=== PATIENT | female | born 1950 | race Caucasian/White ===

== ENCOUNTER 2017-10-07 00:42 | Emergency (ER) | payer MEDICARE, BC ==
[2017-10-07] MEDS ORDERED: INSULIN REGULAR, HUMAN 100 UNITS/ML VIAL IV ONE ×2 (01:11→03:45)
[2017-10-07] MEDS ORDERED: NORMAL SALINE 1,000 ML IV ONE ×2 (01:11→02:45)
[2017-10-07 01:30] LABS: Hematocrit 44.5 % (37.0-47.0); Hemoglobin 15.4 gm/dL (12.5-16.0); Mean Cell Volume 88.6 fl (78-100); Mean Corpuscular Hemoglobin 30.7 pg (27-31); Mean Corpuscular Hgb Conc 34.6 g/dl (32-36); Mean Platelet Volume 11.5 fl (6.0-9.5); Neutrophil # 17.1 K/mm3 (1.3-6.0); Neutrophil % 84.1 % (42-75.0); Platelet Count 425 K/mm3 (150-450); Red Blood Count 5.02 M/mm3 (4.2-5.4); Red Cell Distribution Width 12.2 % (11.5-14.0); White Blood Count 20.4 K/mm3 (4.0-10.5)
[2017-10-07 02:20] LABS: ALT 41 U/L (19-67); AST 14 U/L (0-48); Albumin * 3.6 gm/dl (3.4-5.0); Alkaline Phosphatase * 117 U/L (50-170); Anion Gap 14.8 mmol/L (6.8-13.8); BUN/Creatinine Ratio 23.7 (9.0-21.6); Bilirubin, Total 0.3 mg/dL (0.0-1.1); Blood Urea Nitrogen 36 mg/dL (3-23); Ca. Corrected For Albumin 9.7 mg/dL (8.4-10.2); Calcium * 9.7 mg/dL (7.9-10.9); Carbon Dioxide 26.5 mmol/L (24-32.6); Chloride 94 mmol/L (97-106); Glucose * 440 mg/dL (70-110); Potassium 4.3 mmol/L (3.4-4.6); Sodium 131 mmol/L (132-142); Total Protein 7.7 gm/dL (6.2-8.2)
--- NOTE | 2017-10-07 03:45 | ERNOTE ---
Medical Problem HPI - Narrative Date of Service: 10/07/17 - General Chief Complaint: General Assessment Time Seen by Provider: 10/07/17 01:05 Source: patient, family Exam Limitations: no limitations - Immun/Allergies/Home Medications Immunizations: IMMUNIZATION HX Immunizations Up to Date Yes History of Influenza Vaccine Yes Allergies/Adverse Reactions: Allergies No Known Allergies Allergy (Verified 10/07/17 00:55) Home Medications: HOME MEDICATIONS Albuterol Sulfate [Ventolin HFA] 1 puff IH Q4H PRN 05/04/17 [Last Taken Unknown] Alprazolam [Xanax] 0.25 mg PO Q8H PRN 05/04/17 [Last Taken Unknown] Atorvastatin Calcium [Lipitor] 20 mg PO HS 05/04/17 [Last Taken Unknown] Diltiazem HCl [Cardizem] 90 mg PO TID 05/04/17 [Last Taken Unknown] Furosemide [Lasix] 40 mg PO DAILY 05/04/17 [Last Taken Unknown] Gabapentin [Neurontin] 600 mg PO BID 05/04/17 [Last Taken Unknown] Glucosamine HCl 1,500 mg PO BID 05/04/17 [Last Taken Unknown] HYDROcodone/ACETAMINOPHEN [Hydrocodon-Acetaminoph 2.5-325] 1 each PO Q6H PRN [Last Taken Unknown] Lansoprazole [Prevacid] 30 mg PO BID 05/04/17 [Last Taken Unknown] Losartan Potassium [Cozaar] 100 mg PO DAILY 05/04/17 [Last Taken Unknown] Multivitamin [One Daily Essential] 1 each PO DAILY 05/04/17 [Last Taken Unknown] Potassium 99 mg PO HS 05/04/17 [Last Taken Unknown] Zolpidem Tartrate 10 mg PO HS 05/04/17 [Last Taken Unknown] glipiZIDE [Glucotrol] 10 mg PO BID 05/04/17 [Last Taken Unknown] Apixaban [Eliquis] 5 mg PO BID 10/07/17 [Last Taken Unknown] Methylprednisolone [Medrol Dosepak] 4 mg PO DAILY 10/07/17 [Last Taken Unknown] valACYclovir HCL [Valtrex] 500 mg PO TID 10/07/17 [Last Taken Unknown] - History of Present History Narrative: patient noted blood sugar was elevated this evening recently had outbreak of shingles and has been placed on antiviral and prednisone, is type 2 dabetic Timing: constant Severity: moderate Modifying Factors - (Improves): Present: other - nothing Modifying Factors - (Worsens): Present: other - nothing Review of Systems - Review of Systems Constitutional: Present: See HPI, weakness, fatigue, malaise EYE: Present: no symptoms reported ENT: Present: no symptoms reported Respiratory: Present: no symptoms reported Cardiology: Present: no symptoms reported Gastrointestinal/Abdominal: Present: no symptoms reported Genitourinary: Present: no symptoms reported Musculoskeletal: Present: no symptoms reported Skin: Present: no symptoms reported Neurological: Present: no symptoms reported Endocrine: Present: no symptoms reported Hematologic/Lymphatic: Present: no symptoms reported Psych: Present: no symptoms reported All Other Systems: All systems neg except as marked - Narrative Narrative: unremarkable - Patient's Past Medical History Patient History - Medical: Anxiety, Diabetes Type 2 Insulin Dependent, Obesity Patient History - Cardiac/Respiratory: Atrial Fibrillation, Hypertension, Hyperlipidemia Patient History - Cancer: No Hx of Cancer Patient History - Surgical Procedures: Cholecystectomy, Hysterectomy Patient History - Other: None LMP (females 10-50): Menopausal - Family History Family History:: no untoward family reactions to anesthesia, no familial bleeding tendencies, no family history of clotting disorders, no family history of premature - Social History Living Situations: home Abuse History: No History of abuse Psych History: No pertinent hx Does anyone smoke in the home?: No Smoking Status: Never smoker Have you smoked in the past 12 months: No Do you dip or chew tobacco: No Patient requests Smoking Cessation Consult: No Initiate information on Smoking Cessation: No Alcohol Use: none Drug Use: none - Immunizations Immunizations Up to Date: Yes History of Influenza Vaccine: Yes Physical Exam - Physical Exam Narrative: patient appears in no distress General Appearance: Present: no apparent distress Head Exam: Present: normal inspection, no evidence of injury Eye Exam: Normal inspection: bilateral, PERRL: bilateral, EOMI: bilateral Ears, Nose, Throat: Present: normal ENT inspection, other - face has blister rash on left cheek and jaw Neck: Present: normal inspection, nontender Respiratory: Present: no respiratory distress, normal breath sounds, no accessory muscle use, chest nontender, lungs clear Cardiovascular/Chest: Present: regular rate, rhythm, no murmur, normal peripheral pulses Peripheral Pulses: N=norm/S=strong/W=weak/B=bound/A=absent: Carotid (R): Normal , Carotid (L): Normal, Radial (R): Normal, Radial (L): Normal, Femoral (R): Normal, Femoral (L): Normal, Dorsalis-pedis (R): Normal, Dorsalis-pedis (L): Normal Gastrointestinal/Abdominal: Present: normal bowel sounds, nontender, nondistended, soft, no organomegaly Back Exam: Present: normal inspection, normal range of motion, no CVA tenderness , no vertebral tenderness Extremity Exam: Present: normal inspection, non-tender, normal range of motion, no edema Neurological Exam: Present: alert, oriented, normal mood/affect, no motor/ sensory deficits Skin Exam: Present: skin rash, other - rash on left cheek Lymphatic Exam: Present: no adenopathy ED Progress - Date and Time Seen: Date and Time: 10/07/17 04:26 patient improved, discussed labs with patient, to continue to moniter blood sugar, stop prednisone, f/u with dr plunkett ,return if symptoms worsen - Results and Orders Patient's Lab Results:: I have reviewed the patient's lab results. - Vital Signs Patient's Vital Signs:: I have reviewed the patient's vital signs. Vital Signs: Vital Signs 10/07/17 10/07/17 10/07/17 00:47 02:18 02:49 Temperature 36.5 C Pulse Rate 77 74 72 Respiratory 20 20 18 Rate Blood Pressure 154/73 165/76 158/78 O2 Sat by Pulse 95 93 94 Oximetry 10/07/17 03:28 Temperature 36.5 C Pulse Rate 76 Respiratory 20 Rate Blood Pressure 168/80 O2 Sat by Pulse 94 Oximetry - EKG EKG: NSR EKG read: Interp. by me - Progress/Reassessment Chief Complaint: General Assessment Progress:: Improved - Transfer of Care Expected Disposition: Discharge Plan - Plan Plan: to be discharged Departure Clinical Impression: Hyperglycemia due to type 2 diabetes mellitus - Departure Disposition: Home self-care Condition: Fair Instructions: Hyperglycemia, [id number], Blood Glucose Monitoring, Adult Referrals: Massiel Plunkett MD [Primary Care Provider] -
[2017-10-07 04:11] LABS: Urine Bilirubin Negative (NEGATIVE); Urine Blood 25 /ul (NEGATIVE); Urine Ketone Negative (NEGATIVE); Urine Nitrite Negative (NEGATIVE); Urine Protein Negative (NEGATIVE); Urine Specific Gravity <=1.005 SP.GR. (1.005-1.010); Urine Urobilinogen Normal (NORMAL)
[2017-10-07 04:24] LABS: Urine Appearance Clear; Urine Bacteria None Seen; Urine Color Yellow; Urine RBC TRACE /hpf (0-5); Urine WBC None Seen /hpf (0-5)
[2017-10-07 04:40] VITALS: BP 165/86
== END 2017-10-07 04:37 | disposition home or self-care (01) ==
LOC: ER 00:42
DX: F41.9 Anxiety disorder, unspecified; E11.65 Type 2 diabetes mellitus with hyperglycemia; Z79.4 Long term (current) use of insulin; I10 Essential (primary) hypertension; E66.9 Obesity, unspecified; I48.91 Unspecified atrial fibrillation; Z79.01 Long term (current) use of anticoagulants; Z68.43 Body mass index [BMI] 50.0-59.9, adult; E78.5 Hyperlipidemia, unspecified

== ENCOUNTER 2020-02-27 05:36 | Inpatient (IN) ==
[2020-02-27] MEDS ORDERED: VANCOMYCIN/WATER FOR INJ (PEG) 1 GM/200 ML BAG IV PRN (06:00)
[2020-02-27] MEDS ORDERED: TRANEXAMIC ACID 1,000 MG in NORMAL SALINE 100 ML IV PRN (06:00)
[2020-02-27] MEDS ORDERED: ceFAZolin SODIUM 1 GM VIAL IV PRN (06:00)
[2020-02-27] MEDS ORDERED: RINGER'S SOLUTION,LACTATED 1,000 ML IV PRN (06:00)
[2020-02-27] MEDS ORDERED: ceFAZolin SODIUM 1 GM VIAL ONE (06:26)
[2020-02-27 06:40] VITALS: BP 119/63
== END 2020-02-27 07:30 | disposition home or self-care (01) | DRG 554 ==
LOC: MS 05:36
PROVIDERS: ADMIT Orthopaedic Surgery; ATTEND Orthopaedic Surgery
CPT/HCPCS: C9803

== ENCOUNTER 2020-03-05 06:23 | Inpatient (IN) ==
[~2020-03-05 06:23] MED LIST: RINGER'S SOLUTION,LACTATED 1,000 ML IV PRN; TRANEXAMIC ACID 1,000 MG in NORMAL SALINE 100 ML IV PRN; ceFAZolin SODIUM 1 GM VIAL IV PRN
[2020-03-05] MEDS ORDERED: ceFAZolin SODIUM 2 GM in DEXTROSE 5 % IN WATER 50 ML IV ONE ×2 (07:00)
[2020-03-05] MEDS ORDERED: PROPOFOL VIAL IV ONE (07:05)
[2020-03-05] MEDS ORDERED: ONDANSETRON HCL/PF 2 MG/ML VIAL ONE (07:05)
[2020-03-05] MEDS ORDERED: LIDOCAINE HCL 20 ML VIAL ONE (07:05)
[2020-03-05] MEDS ORDERED: BUPIVACAINE HCL 50 ML VIAL IJ ONE (07:05)
[2020-03-05] MEDS ORDERED: SEVOFLURANE 250 ML BTL IH ONE (07:08)
[2020-03-05] MEDS ORDERED: VANCOMYCIN/WATER FOR INJ (PEG) 1 GM/200 ML BAG IV ONE (07:16)
--- NOTE | 2020-03-05 07:33 | ANES ---
Anesthesia Pre Procedure Eval Vitals/Labs: Last Vital Signs Temp 36.8 C 03/05/20 06:48 Pulse 86 03/05/20 06:48 Resp 18 03/05/20 06:48 BP 179/75 H 03/05/20 06:48 Pulse Ox 95 03/05/20 06:48 HOME MEDICATIONS Multivitamin [One Daily Essential] 1 ea PO DAILY 05/04/17 [Last Taken 03/01/20] Potassium 99 mg PO HS 05/04/17 [Last Taken 03/01/20] acetaminophen 650 mg tablet,extended release 1,300 mg PO Q8H PRN tab 02/12/18 [Last Taken Unknown] blood-glucose meter See Dose Instructions .ROUTE .MEDSUPPLY #1 ea 02/12/18 [Last Taken Unknown] gabapentin 600 mg tablet 600 mg PO TID tab 02/12/18 [Last Taken 03/01/20] ibuprofen 200 mg tablet 200 mg PO Q8H PRN 02/12/18 [Last Taken Unknown] lancets 33 gauge See Dose Instructions .ROUTE .MEDSUPPLY #100 ea 02/12/18 [Last Taken Unknown] triamcinolone acetonide 0.1 % topical cream 1 applic TP TID PRN #15 g 11/02/18 [Last Taken Unknown] blood sugar diagnostic See Dose Instructions .ROUTE .MEDSUPPLY #10 ea 04/29/19 [Last Taken Unknown] metformin 500 mg 24 hr tablet,extended release 500 mg PO BID #180 tab 11/14/19 [Last Taken 03/04/20] omeprazole 40 mg capsule,delayed release 40 mg PO DAILY #90 cap 12/03/19 [Last Taken 03/01/20] cholecalciferol (vitamin D3) 125 mcg (5,000 unit) capsule 125 mcg PO DAILY 01/15/20 [Last Taken 02/23/20] magnesium oxide 400 mg (241.3 mg magnesium) tablet 400 mg PO DAILY 01/15/20 [Last Taken 03/01/20] melatonin 10 mg capsule 10 mg PO DAILY 01/15/20 [Last Taken 03/04/20] liraglutide 0.6 mg/0.1 mL (18 mg/3 mL) subcutaneous pen injector See Rx Instructions .ROUTE .COMPLEX #9 unknown measurement unit code: ml 01/16/20 [Last Taken 03/04/20] duloxetine 60 mg capsule,delayed release 60 mg PO DAILY #30 cap 01/24/20 [Last Taken 03/01/20] pen needle, diabetic 32 gauge x " See Rx Instructions .ROUTE .COMPLEX #100 unknown measurement unit code: not specified 01/24/20 [Last Taken Unknown] alprazolam 0.25 mg tablet 0.125 mg PO QHS PRN #30 tab 02/24/20 [Last Taken 03/01/20] amlodipine 5 mg tablet 5 mg PO DAILY #30 tab 02/24/20 [Last Taken 03/05/20] hydrochlorothiazide 25 mg tablet 25 mg PO DAILY #30 tab 02/24/20 [Last Taken 03/01/20] Apixaban [Eliquis] 5 mg PO BID 02/27/20 [Last Taken 02/29/20] Atorvastatin Calcium [Lipitor] 20 mg PO DAILY 02/27/20 [Last Taken 03/01/20] Carvedilol [Coreg] 1 tab PO BID 03/05/20 [Last Taken 03/05/20] Allergies/Adverse Reactions: Allergies Allergy/AdvReac Type Severity Reaction Status Date / Time No Known Allergies Allergy Verified 03/05/20 06:42 - Planned Procedure Planned Procedure: Left Total Shoulder Arthroplasty--Anatomic vs. Rev Medication List Reviewed:: Yes Allergies Verified: Yes Medical History (Last Reviewed 03/05/20 @ 07:32 by Earnest Booth CRNA) Herpes (Acute) The lesion has the characteristic appearance of a herpetic ulcerative lesion which is likely why a topical steroid has not worked for the patient. Treat empirically with herpes until the HSV culture returns. White discharge was noted as well and thus a wet prep was collected as well. GERD (gastroesophageal reflux disease) (Chronic) Onset Date: Unknown GRAY (obstructive sleep apnea) (Chronic) Onset Date: ~12/28/15 Nasal CPAP at 11Cm H20 Morbid obesity (Chronic) Onset Date: Unknown Hypertension (Chronic) Onset Date: Unknown Fibromyalgia (Chronic) Onset Date: Unknown Diabetes mellitus (Chronic) Onset Date: Unknown Colitis, ulcerative (Chronic) Onset Date: Unknown Atrial fibrillation (Chronic) Onset Date: ~05/02/17 Arthritis (Chronic) Onset Date: Unknown Neuropathy feet Hernia Onset Date: Unknown Surgical History (Last Reviewed 03/05/20 @ 07:32 by Earnest Booth CRNA) H/O cardiac catheterization Onset Date: Unknown Dr. Caicedo H/O colonoscopy Onset Date: ~2014 H/O endoscopy Onset Date: Unknown H/O hernia repair Onset Date: Unknown H/O tooth extraction Onset Date: Unknown History of bilateral knee replacement Onset Date: Unknown History of cholecystectomy Onset Date: Unknown History of esophagogastroduodenoscopy (EGD) Onset Date: Unknown History of hysterectomy Onset Date: Unknown History of tonsillectomy Onset Date: Unknown Family History (Last Reviewed 03/05/20 @ 07:32 by Earnest Booth CRNA) Other Unknown Family Medical History - Patient adopted - Family Anesthesia History Family History:: no untoward family reactions to anesthesia - Airway/Neck/Teeth Within Normal Limits:: Yes Teeth Condition: intact Neck Exam: limited range of motion Mallampatti Score: 3 Thyromental (T-M) distance: > 6 cm Mandibulo Hyoid distance: > 3 cm - Respiratory Respiratory History: sleep apnea Respiratory Physical: lungs clear Smoking Status: Never smoker Sleep Apnea currently treated: Yes Sleep Apnea by current assessment: Yes - Cardiovascular Cardiac History: arrhythmia, hypertension Tolerate Activity: Fair Heart Sounds: Irregular - Gastrointestinal NPO since: [place] - Anesthesia Assessment and Plan ASA Class: PS, III Anesthesia Type Plan: General LMA - lt interscalene nerve block Planned difficult intubation/equipment available: No
[2020-03-05] MEDS ORDERED: oxyCODONE HCL/ACETAMINOPHEN 1 TAB TABLET PO PRN (10:39)
[2020-03-05] MEDS ORDERED: MORPHINE SULFATE 2 MG/ML DISP.SYRIN IV PRN (10:39)
[2020-03-05] MEDS ORDERED: MAGNESIUM HYDROXIDE 30 ML UDC PO PRN (10:39)
[2020-03-05] MEDS ORDERED: MAG HYDROX/ALUMINUM HYD/SIMETH 30 ML UDC PO PRN (10:39)
[2020-03-05] MEDS ORDERED: ONDANSETRON HCL/PF 2 MG/ML VIAL IV PRN (10:39)
[2020-03-05] MEDS ORDERED: ACETAMINOPHEN 500 MG TABLET PO PRN (10:39)
[2020-03-05] MEDS ORDERED: TRIAMCINOLONE ACETONIDE 15 APPL TUBE TP PRN (10:43)
[2020-03-05] MEDS ORDERED: ALPRAZolam 0.25 MG TABLET PO PRN (10:43)
--- NOTE | 2020-03-05 10:52 | OR ---
Operative Report - Dictated Report Narrative: Date: 03/05/2020 Physician: Andre Jessica M.D. Emergency Room Clinician: Tj Clark PA-C provided a set of essential, skilled, educated hands that assisted in positioning, transfer, retraction, manipulation, irrigation, closure of wounds, and placement of dressings all of which could not be provided by the available surgical crew. Preoperative diagnosis: Left glenohumeral osteoarthritis Postoperative diagnosis: Left glenohumeral osteoarthritis Procedure: Left anatomic total shoulder arthroplasty Anesthesia: General plus regional Complications: None Estimated blood loss: 200 mL Specimens: Bone for disposal Retained implants: Depuy Global Unite size 10 standard stem, Global Unite anatomic proximal body size 10, Global Unite standard humeral head 48 mm x 15 mm, Global anchor peg glenoid size 44 mm Drains: None Indications: Katya is a 69 year-old female who has been followed in my clinic with complaints of shoulder pain consistent with right glenohumeral arthritis. Physical exam and diagnostic imaging were consistent with his complaints and concern for glenohumeral arthritis with an intact rotator cuff. Conservative measures have failed including, but not limited to, passage of time, activity modification, medications, physical therapy/home exercise program, or injections. The risks, benefits, and alternatives were discussed in clinic. The risks being , bleeding, infection, blood clots, nerve, tendon, ligament, blood vessel injury, persistent pain, arthrosis, stiffness, need for prolonged therapy, implant failure/loosening, need for additional procedures, and persistent symptoms. Consent was obtained in the clinic. Procedure: After marking the correct extremity in the preoperative holding area, a timeout was performed in the operating room. IV antibiotics consisting of 2 g of Ancef and 1 g of vancomycin were administered prior to the procedure. A general followed by regional anesthetic was induced by the nurse board turner. This was in the supine position, then the patient was transitioned to a beachchair position with all bony prominences well-padded, head in neutral, the nonoperative arm well supported, and the legs padded with SCDs in place. The operative shoulder was then prepped and draped in a standard sterile fashion. Preoperatively the shoulder had slightly limited abduction and external rotation. After marking out the bony landmarks, an approximately 8 cm deltopectoral incision was marked out and incised with a sharp knife. A combination of blunt dissection and electrocautery was carried down through subcutaneous tissue to the level of the deltopectoral fascia. The fascial interval was developed with Metzenbaum scissors identifying the cephalic vein which was protected. Blunt finger dissection was used to develop the deltopectoral interval and the deltoid was retracted laterally while the pectoralis major and the cephalic vein were retracted medially. This revealed the conjoined tendon and anterior aspect of the shoulder. The bicipital groove was identified as well as the lesser tuberosity and we marked out our location for our subscapularis tenotomy. The subscapularis tendon was tagged with Vicryl suture and then tenotomized, leaving a cuff of tissue for repair. Our incision was carried up through the rotator cuff interval to the level of the glenoid. The inferior aspect of the subscapularis as well as the inferior capsule was released taking care to protect the axillary nerve. The capsule was then released from the anterior and inferior aspects of the glenoid. At this point the arm was externally rotated and the shoulder dislocated delivering the humeral head up and out of the wound. The supraspinatus tendon was inspected and noted to be intact. At this point we identified our starting point for the humeral starting reamer centered over the intramedullary canal. The entry reamer was advanced down the intramedullary canal of the humerus. Sequential hand reaming up to a size 10 mm reamer was performed achieving good chatter cortical chatter. The reamer was left in place and then the humeral head cutting jig was attached. This was placed in approximately 30 of retroversion at the appropriate height based on the level of the greater tuberosity. This was then pinned into place and the reamer removed. The humeral head was then resected being careful to protect the supraspinatus insertion. The cephalic vein was nicked while cutting the humeral head. This was tied off with 2-0 silk ties. A rongeur was used to clean up some anterior and inferior osteophyte. A protective metal cap was then placed over the cut end of the proximal humerus. Attention was then turned to the glenoid. A series of glenoid retractors were used to retract the humeral head posteriorly and inferior out of the way well as to retract the anterior soft tissue giving us 360 exposure of the glenoid. The labrum was then removed in its entirety with a sharp knife. The base of the coracoid was identified as well as the inferior/lateral border of the scapula and these were marked out to establish the bony anatomy of the glenoid. The glenoid was sized to a 44 mm component. The glenoid guide was then placed in the appropriate position and the center guide pin was advanced into place. The glenoid was then reamed removing all cartilage and soft tissue being careful to preserve subchondral bone. The central peg drill was then advanced down over our central pin and drilled. The drill guide for the peripheral pegs was then placed with one peg superiorly and two pegs inferiorly. These were sequentially drilled. The guide was then removed. The glenoid was then irrigated and thoroughly dried and bone cement was packed into the peripheral peg holes. A size 44 mm Global anchor peg glenoid was then impacted into place. Once the cement had adequately cured we turned our attention back to the humerus. A size 10 broach was advanced into the appropriate position once again in 30 of retroversion. A size 10 trial humeral stem was then impacted into place and we began trialing humeral heads. It was determined that a size 48 x 15 mm standard head gave us the best fit with good stability. Full passive range of motion was able to be obtained. The final 10 mm humeral component was then assembled on the back table and then impacted into its final position in the appropriate amount of retroversion. We then re-trialed our humeral head to confirm the appropriate size. The final humeral head was then impacted into place. A final check demonstrated full passive range of motion with good stability. At this point the wound was copiously irrigated with normal saline. The subscapularis was repaired with #2 Fiberwire. This was then oversewn with 1 Vicryl. 0 Vicryl was utilized in order to close the delto-pectoral fascia. 3-0 Vicryl was placed in the subcutaneous tissue. Skin was closed with a running subcuticular 4-0 Monocryl. Dressings consisting of Prineo, 4 x 4, ABD, and tape were applied. The operative arm was then placed in a shoulder immobilizer. All sponge, needle, blade, and instrument counts were correct prior to closing the wounds. The patient was awoken and transferred to the postanesthesia care unit in stable condition.
--- NOTE | 2020-03-05 10:59 | ANES ---
Post Anesthesia Discharge - Transfer of Care Transfer of Care handoff given to nurse: Yes - Discharge from PACU Discharge from PACU when meets criteria: Yes
[2020-03-05] MEDS: oxyCODONE HCL/ACETAMINOPHEN 1 TAB TABLET PO PRN ×2 (12:01→18:58)
[2020-03-05] MEDS: NORMAL SALINE 1,000 ML IV PRN ×2 (12:08→18:55)
[2020-03-05] MEDS: GABAPENTIN 600 MG TABLET PO SCH ×2 (12:10→17:23)
--- NOTE | 2020-03-05 14:07 | ANES ---
Post Anesthesia Assessment - Vital Signs Vitals: Last Vital Signs Temp 36.4 C 03/05/20 11:30 Pulse 85 03/05/20 11:30 Resp 18 03/05/20 11:30 BP 157/74 H 03/05/20 11:30 Pulse Ox 96 03/05/20 11:30 Airway Patency: Normal - Mental Status Level Of Consciousness: Awake - Pain Level Pain Score: 1 - N/V Assessment Nausea/Vomiting Presence: None Dehydration:: No
--- NOTE | 2020-03-05 14:11 | ANES ---
Anesthesia Procedure Note Procedure Note: ANESTHESIA PROCEDURE NOTE Date of procedure: 03/05/2020. Time of procedure: . Performed by: Reagan Booth CRNA Workers Compensation Consultant: Tamra Galeano RN . Preprocedure diagnosis: Left shoulder DJD. Post procedure diagnosis: Same. Procedure: Ultrasound-guided left interscalene nerve block Indications: Postoperative analgesia. Findings: Patient was brought operating room #4 and given a general anesthetic induction with LMA insertion. Patient was placed in semi-Fowlers position. The left side of patient's neck was prepped with ChloraPrep. Ultrasound was utilized to identify the brachial plexus in the left interscalene groove. 22- gauge 2 inch regional block needle was advanced under ultrasound guidance until tip of needle was placed just anterior to brachial plexus. A nerve stimulator was utilized with muscle twitch noted with decreasing intensity from 0.8 mA to 0.5 mA. Muscle twitch disappeared at 0.5 mA. 20 mL of 0.5% Marcaine was injected with adequate spread of local anesthesia noted around the nerve roots. Regional block needle was repositioned until placed just posterior to the brachial plexus. A second dose of 20 mL of 0.5% Marcaine was injected again with adequate spread of local anesthesia noted a around the nerve roots. Regional block needle was removed intact. EBL: Minimal. Fluids: N/A. Specimen: N/A. Post procedure condition: The patient tolerated the procedure well. No complications were noted. Thank you for this consultation Reagan Booth CRNA
[2020-03-05] MEDS: VANCOMYCIN/WATER FOR INJ (PEG) 1 GM/200 ML BAG IV SCH (20:58)
[2020-03-05] MEDS: CARVEDILOL 12.5 MG TABLET PO SCH (20:59)
[2020-03-05] MEDS ORDERED: SENNOSIDES/DOCUSATE SODIUM 1 TAB TABLET PO SCH (21:00)
[2020-03-05] MEDS ORDERED: ROSUVASTATIN CALCIUM 10 MG TABLET PO SCH (21:00)
[2020-03-06] MEDS: oxyCODONE HCL/ACETAMINOPHEN 1 TAB TABLET PO PRN ×3 (00:56→09:31)
[2020-03-06] MEDS ORDERED: PANTOPRAZOLE SODIUM 40 MG TABLET.EC PO SCH (07:00)
--- NOTE | 2020-03-06 07:56 | DS ---
(1) Status post total shoulder arthroplasty Problem: Acute Qualifiers: Laterality: left Qualified Code(s): Z96.612 - Presence of left artificial shoulder joint Date of Discharge:: 03/06/20 Hospital Course: 69-year-old female postop day 1 status post left anatomic total shoulder arthroplasty. Patient has an uncomplicated stay in the hospital to this point. She was admitted postoperatively yesterday for observation, pain control, return to p.o. diet, PT/OT. At this time patient is well controlled with p.o. pain medication, she has passed all PT/OT goals, return to p.o. diet without significant complication. Exam today reveals left upper extremity pernio in place, sensation intact light touch, neurologically intact, diffuse mild tenderness about left shoulder. Patient will otherwise continue with the following recommendations: -PT/OT progress as tolerated, per protocol, avoid significant external rotation activities -Left shoulder immobilizer with bolster in place for all activity outside of hygiene and PT/OT -P.o. pain medication PRN -P.o. diet as tolerated -DVT prophylaxis: Eliquis -Follow-up with orthopedic outpatient clinic at 2 weeks postop -Maintain pernio dressing in place Disposition: Home with self-care, begin outpatient PT/OT Procedures Performed: see notes below List Procedures: Status post left anatomic total shoulder arthroplasty Discharge Location: Home Disposition: Home self-care Condition: Stable Discharge Activity: Activity as tolerated, Non-Weight bearing - LUE Discharge Diet: General/regular food Referrals: Melissa Stevens MD [Primary Care Provider] - Problem Oriented Discharge Instructions to Patient/Family: Shoulder Joint Replacement, Care After Print Language (Mauritanian or Thai Available): Mauritanian Additional Patient Instructions (free text): Occupational Therapy at [facility] outpatient reahab department on MondayMarch 11 at 10:15am. Follow up Orthopedic office appointment on MondayMarch 23 at 9:30am. Prescriptions (Any new or edited meds): oxyCODONE HCL/ACETAMINOPHEN [Percocet 5 MG/325 MG] 1 - 2 tab PO Q4H PRN #60 tab PRN Reason: Severe Pain (Pain Scale 7-10) Transmission Status: Received by [place], [place] Complete Home Medications List: Complete Home Medication List: Multivitamin [One Daily Essential] 1 ea PO DAILY 05/04/17 Potassium 99 mg PO HS 05/04/17 acetaminophen 650 mg tablet,extended release 1,300 mg PO Q8H PRN tab 02/12/18 blood-glucose meter See Dose Instructions .ROUTE .MEDSUPPLY #1 ea 02/12/18 gabapentin 600 mg tablet 600 mg PO TID tab 02/12/18 ibuprofen 200 mg tablet 200 mg PO Q8H PRN 02/12/18 lancets 33 gauge See Dose Instructions .ROUTE .MEDSUPPLY #100 ea 02/12/18 triamcinolone acetonide 0.1 % topical cream 1 applic TP TID PRN #15 g 11/02/18 blood sugar diagnostic See Dose Instructions .ROUTE .MEDSUPPLY #10 ea 04/29/19 metformin 500 mg 24 hr tablet,extended release 500 mg PO BID #180 tab 11/14/19 omeprazole 40 mg capsule,delayed release 40 mg PO DAILY #90 cap 12/03/19 cholecalciferol (vitamin D3) 125 mcg (5,000 unit) capsule 125 mcg PO DAILY 01/15/20 magnesium oxide 400 mg (241.3 mg magnesium) tablet 400 mg PO DAILY 01/15/20 melatonin 10 mg capsule 10 mg PO DAILY 01/15/20 liraglutide 0.6 mg/0.1 mL (18 mg/3 mL) subcutaneous pen injector See Rx Instructions .ROUTE .COMPLEX #9 unknown measurement unit code: ml 01/16/20 duloxetine 60 mg capsule,delayed release 60 mg PO DAILY #30 cap 01/24/20 pen needle, diabetic 32 gauge x 5/32" See Rx Instructions .ROUTE .COMPLEX #100 unknown measurement unit code: not specified 01/24/20 alprazolam 0.25 mg tablet 0.125 mg PO QHS PRN #30 tab 02/24/20 amlodipine 5 mg tablet 5 mg PO DAILY #30 tab 02/24/20 hydrochlorothiazide 25 mg tablet 25 mg PO DAILY #30 tab 02/24/20 Apixaban [Eliquis] 5 mg PO BID 02/27/20 Atorvastatin Calcium [Lipitor] 20 mg PO DAILY 02/27/20 Carvedilol [Coreg] 1 tab PO BID 03/05/20 Mupirocin 1 gm TOPICAL ONCE 03/05/20 oxyCODONE HCL/ACETAMINOPHEN [Percocet 5 MG/325 MG] 1 - 2 tab PO Q4H PRN #60 tab 03/06/20 Amb Orders for Discharge: OT Evaluation and Treatment Location: None Selected
[2020-03-06] MEDS: VANCOMYCIN/WATER FOR INJ (PEG) 1 GM/200 ML BAG IV SCH (08:46)
[2020-03-06] MEDS: CARVEDILOL 12.5 MG TABLET PO SCH (08:55)
[2020-03-06] MEDS: GABAPENTIN 600 MG TABLET PO SCH (08:56)
[2020-03-06] MEDS ORDERED: amLODIPine BESYLATE 5 MG TABLET PO SCH (09:00)
[2020-03-06] MEDS ORDERED: DULoxetine HCL 30 MG CAPSULE.SA PO SCH (09:00)
[2020-03-06] MEDS ORDERED: HYDROCHLOROTHIAZIDE 25 MG TABLET PO SCH (09:00)
[2020-03-06] MEDS ORDERED: MAGNESIUM OXIDE 400 MG TABLET PO SCH (09:00)
[2020-03-06] MEDS ORDERED: CHOLECALCIFEROL 5,000 UNIT TABLET PO SCH (09:00)
[2020-03-06] MEDS ORDERED: MELATONIN 3,000 MCG TABLET PO SCH (09:00)
[2020-03-06 11:42] VITALS: BP 133/59
[2020-03-06] MEDS ORDERED: APIXABAN 5 MG TABLET PO SCH (21:00)
== END 2020-03-06 12:05 | disposition home or self-care (01) | DRG 483 ==
LOC: MS 06:23
PROVIDERS: ADMIT Orthopaedic Surgery; ATTEND Orthopaedic Surgery
DX: Z79.01 Long term (current) use of anticoagulants; M19.012 Primary osteoarthritis, left shoulder; I10 Essential (primary) hypertension; E11.9 Type 2 diabetes mellitus without complications; E66.01 Morbid (severe) obesity due to excess calories; I48.91 Unspecified atrial fibrillation; Z68.43 Body mass index [BMI] 50.0-59.9, adult
CPT/HCPCS: 73030; 97110; 97116; 97161; 97165; J2405